=== PATIENT | female | born 1990 | race Two or more races ===

== ENCOUNTER 2020-10-15 11:40 | Inpatient (IN) | payer OTHER ==
[~2020-10-15] VITALS: Ht 152.4 cm; Wt 57.2 kg
[2020-10-15] MEDS ORDERED: PRENATAL TABLE1 EAC1 PO (12:38)
== END 2020-10-18 14:27 | disposition home or self-care (01) | DRG 785 ==
LOC: LDR 11:40 → OB/GYN 19:58
PROVIDERS: ADMIT Obstetrics & Gynecology; ATTEND Obstetrics & Gynecology
PROC: 0UB70ZZ Excision of Bilateral Fallopian Tubes, Open Approach (ICD-10-PCS; 2020-10-15)
PROC: 4A1HXFZ Monitoring of Products of Conception, Cardiac Rhythm, External Approach (ICD-10-PCS; 2020-10-15)
PROC: 10D00Z1 Extraction of Products of Conception, Low, Open Approach (ICD-10-PCS; principal; 2020-10-15 14:00)
DX: O34.211 Maternal care for low transverse scar from previous cesarean delivery (principal); Z30.2 Encounter for sterilization; Z37.0 Single live birth; Z3A.37 37 weeks gestation of pregnancy; Z20.828 Contact with and (suspected) exposure to other viral communicable diseases